=== PATIENT | male | born 1980 | race African-American/Black ===

== ENCOUNTER 2019-04-23 01:19 | Emergency (ER) | payer MEDICAID, OTHER ==
[~2019-04-23] VITALS: Ht 180.3 cm; Wt 87.0 kg
[2019-04-23] MEDS ORDERED: DEXAMETHASONE 10 MG/ML VIAL IM ONE (04:00)
[2019-04-23] MEDS ORDERED: CLINDAMYCIN HCL 150MG CAPSULE PO SCH (04:00)
[2019-04-23] MEDS ORDERED: KETOROLAC 30MG/ML VIAL IM ONE (04:00)
[2019-04-23 04:52] VITALS: BP 136/90
== END 2019-04-23 04:55 | disposition home or self-care (01) ==
LOC: ER 01:19
DX: R07.0 Pain in throat (principal); Z87.891 Personal history of nicotine dependence; Z88.0 Allergy status to penicillin
CPT/HCPCS: 96372; 99283; J1100; J1885

== ENCOUNTER 2019-04-25 08:04 | Emergency (ER) | payer MEDICAID ==
[~2019-04-25] VITALS: Ht 180.3 cm; Wt 85.0 kg
[2019-04-25 08:44] VITALS: BP 142/84
== END 2019-04-25 09:41 | disposition left against medical advice (07) ==
LOC: ER 08:04
DX: J02.9 Acute pharyngitis, unspecified (principal); Z53.21 Procedure and treatment not carried out due to patient leaving prior to being seen by health care provider

== ENCOUNTER 2019-05-02 12:28 | Emergency (ER) | payer MEDICAID ==
[~2019-05-02] VITALS: Ht 180.3 cm; Wt 84.0 kg
[2019-05-02 15:44] VITALS: BP 137/89
== END 2019-05-02 15:45 | disposition home or self-care (01) ==
LOC: ER 12:28
DX: R59.1 Generalized enlarged lymph nodes (principal)
CPT/HCPCS: 87070; 87430; 99283